=== PATIENT | male | born 1945 | race Caucasian/White ===

== ENCOUNTER 2017-02-13 11:54 | Day surgery (SDC) | payer MEDICARE, BC ==
[~2017-02-13 11:54] MED LIST: Lactated Ringers 1,000 ML IV SCH
[2017-02-13] MEDS ORDERED: fentaNYL 100 MCG/2 ML SDV ONE (12:17)
[2017-02-13] MEDS ORDERED: Lidocaine 2% 5 ML SDV ONE (12:17)
[2017-02-13] MEDS ORDERED: Propofol 200 MG/20 ML SDV ONE (12:17)
[2017-02-13] MEDS ORDERED: Midazolam 1 MG/ML 2 ML SDV ONE (12:37)
--- NOTE | 2017-02-13 13:51 | PCM.OPNOTE ---
- General Post-Op/Procedure Note Date of Surgery/Procedure: 02/13/17 Operative Procedure(s): Esophagogastroduodenoscopy with biopsies of duodenum and gastric mass Pre Op Diagnosis: Unexplained weight loss. Early satiety. Left upper quadrant mass. Post-Op Diagnosis: Gastric neoplasm Anesthesia Technique: MAC (ASA III) Primary Surgeon: Gustavo Cohen Condition: Good Free Text/Narrative:: Dictation [id number] CPT CODE 39006
[2017-02-13] MEDS ORDERED: Lactated Ringers 1,000 ML IV SCH (14:00)
--- NOTE | 2017-02-13 14:13 | PCM.PREANE ---
Preanesthetic Assessment - Anesthesia/Transfusion/Family Hx Anesthesia History: Prior Anesthesia Without Reaction Family History of Anesthesia Reaction: No Transfusion History: No Prior Transfusion(s) Intubation History: Unknown - Review of Systems General: No Symptoms Pulmonary: No Symptoms Cardiovascular: No Symptoms Gastrointestinal: Abdominal Pain Neurological: No Symptoms Other: Reports: None - Physical Assessment O2 Sat by Pulse Oximetry: 93 Respiratory Rate: 21 Vital Signs: Last Vital Signs Temp 36.7 C 02/13/17 12:45 Pulse 97 02/13/17 13:59 Resp 21 H 02/13/17 13:59 BP 80/54 L 02/13/17 13:59 Pulse Ox 93 L 02/13/17 13:59 Height: 1.7 m Weight: 58.06 kg ASA Class: 3 Mental Status: Alert & Oriented x3 Airway Class: Mallampati = 2 Dentition: Reports: Dentures (upper) Thyro-Mental Finger Breadths: 3 Mouth Opening Finger Breadths: 3 ROM/Head Extension: Full Lungs: Clear to Auscultation, Normal Respiratory Effort Cardiovascular: Regular Rate, Regular Rhythm - Allergies Allergies/Adverse Reactions: Allergies Allergy/AdvReac Type Severity Reaction Status Date / Time No Known Allergies Allergy Verified 04/09/14 09:27 - Blood Blood Available: No - Anesthesia Plan Pre-Op Medication Ordered: None - Acknowledgements Anesthesia Type Planned: MAC Pt an Appropriate Candidate for the Planned Anesthesia: Yes Alternatives and Risks of Anesthesia Discussed w Pt/Guardian: Yes Pt/Guardian Understands and Agrees with Anesthesia Plan: Yes PreAnesthesia Questionnaire HEENT History: Reports: Other (See Below) Other HEENT History: wears glasses, has upper denture Gastrointestinal History: Reports: Other (See Below) Other Gastrointestinal History: presently has c/o abd discomfort and weight loss , early satiety. Large massin the stomach palpable on physical exam and visible on abdominal CT. Musculoskeletal History: Reports: Fracture Other Musculoskeletal History: fx foot and shoulder - Past Surgical History Head Surgeries/Procedures: Reports: None Musculoskeletal Surgical History: Reports: Shoulder Surgery Other Musculoskeletal Surgeries/Procedures:: surgical tx for fx rt foot and fx rt shoulder with shoulder replacemant - SUBSTANCE USE Smoking Status *Q: Never Smoker Second Hand Smoke Exposure: No Days Per Week of Alcohol Use: 0 Recreational Drug Use History: No - HOME MEDS Home Medications: Home Meds Lactose-Reduced Food [Ensure Plus] 1 dose PO ASDIRECTED 02/12/17 [History] - CURRENT (IN HOUSE) MEDS Current Meds: Current Medications Lactated Ringer's (Ringers, Lactated) 1,000 mls @ 125 mls/hr IV ASDIRECTED JULY Lactated Ringer's (Ringers, Lactated) 1,000 mls @ 125 mls/hr IV ASDIRECTED JULY Discontinued Medications Fentanyl (Sublimaze) Confirm Administered Dose 100 mcg .ROUTE .STK-MED ONE Stop: 02/13/17 12:18 Lidocaine (Xylocaine-Mpf 2%) Confirm Administered Dose 5 ml .ROUTE .STK-MED ONE Stop: 02/13/17 12:18 Midazolam HCl (Versed 1 Mg/Ml) Confirm Administered Dose 2 mg .ROUTE .STK-MED ONE Stop: 02/13/17 12:38 Propofol (Diprivan 20 Ml) Confirm Administered Dose 400 mg .ROUTE .STK-MED ONE Stop: 02/13/17 12:18
[2017-02-13 14:26] VITALS: BP 80/57
--- NOTE | 2017-02-13 19:42 | OR ---
SURGEON: Gustavo Cohen M.D. DATE OF PROCEDURE: 02/13/2017 OPERATION PERFORMED: Video esophagogastroduodenoscopy with biopsies of gastric mass. PREOPERATIVE DIAGNOSES: Abdominal pain, unexplained weight loss, abnormal CT scan, palpable abdominal mass. POSTOPERATIVE DIAGNOSIS: Aggressive gastric neoplasm. DESCRIPTION OF PROCEDURE: The patient was taken to the endoscopy room and positioned on the endoscopy table in the supine position. Time-out was called for appropriate identification of the patient and procedure. Monitored anesthesia care was provided. A bite block was placed between the patient's teeth. The gastroscope was inserted through the bite block into the oropharynx and advanced without difficulty through the esophagus into the stomach where one immediately sees a very large aggressive appearing neoplasm that begins perhaps 3 cm below the GE junction. I was able to get through the tumor mass into the duodenum and photos were taken documenting position of the scope. The duodenum does show acute inflammatory changes and duodenal polyps. Separate biopsies of the duodenum were obtained. The gastroscope was then withdrawn into the stomach visualizing the pylorus. This neoplasm does extend almost to the level of the pylorus and involves the entire circumference of the bowel. The tumor mass itself is very large and friable. It involves at least 80% of the length of the stomach and is a circumferential lesion. The GE junction is well defined and does not show any acute inflammatory changes. The esophagus still demonstrates fair contractility. No esophageal lesions were identified. The vocal cords were visualized as the scope was withdrawn and noted to move symmetrically. The patient tolerated the procedure well and was taken to the recovery room in satisfactory condition. BISI / CARLITOS /[id number]
== END 2017-02-13 14:15 | disposition home or self-care (01) ==
LOC: MW.SDS 11:54
PROVIDERS: ATTEND Surgery
DX: C83.33 Diffuse large B-cell lymphoma, intra-abdominal lymph nodes (principal); K31.7 Polyp of stomach and duodenum; R18.8 Other ascites
CPT/HCPCS: 43239; 88305; 88312; J2250; J3010; J2704

== ENCOUNTER 2017-02-23 17:55 | Inpatient (IN) | payer MEDICARE, BC ==
[2017-02-23] MEDS ORDERED: Sodium Chloride 0.9% 1,000 ML IV ONE (18:12)
[2017-02-23] MEDS ORDERED: Sodium Chloride 0.9% 10 ML Syringe FLUSH PRN (18:13)
[2017-02-23] MEDS ORDERED: Sodium Chloride 0.9% 2.5 ML Syringe FLUSH PRN (18:13)
--- NOTE | 2017-02-23 18:17 | EDM.PDOC ---
ED HPI GENERAL MEDICAL PROBLEM - General Chief Complaint: General Stated Complaint: WEAK Time Seen by Provider: 02/23/17 18:13 Source of Information: Reports: Patient, Family, Old Records History Limitations: Reports: No Limitations - History of Present Illness INITIAL COMMENTS - FREE TEXT/NARRATIVE: HISTORY AND PHYSICAL: []71-year-old male presenting with weakness History of Present Illness: []Patient has been sick since . Patient was diagnosed with stomach cancer / lymphoma on February 13. He has been unable to eat solids, he has been drinking Ensure, small amounts at a time. Patient has had at least 15 pound weight loss this month. Review of Systems: As per history of present illness and below otherwise all systems reviewed and negative. Past medical history: As per history of present illness and as reviewed below otherwise noncontributory. Surgical history: As per history of present illness and as reviewed below otherwise noncontributory. Social history: No reported history of drug or alcohol abuse. Family history: As per history of present illness and as reviewed below otherwise noncontributory. Physical exam: Alert and oriented gentleman whose is at bedside. Speaking very softly and full sentences without shortness of breath. Patient looks thin. HEENT: Atraumatic, normocehpalic, pupils reactive, negative for conjunctival pallor or scleral icterus, mucous membranes moist, throat clear, neck supple, nontender, trachea midline. Lungs: Clear to auscultation, breath sounds equal bilaterally, chest non tender. Heart: S1S2, regular, negative for clicks, rubs, or JVD. Abdomen: Soft, nondistended, nontender. Negative for masses or hepatossplenmegaly. Negative for costovertebral tenderness. Pelvis: Stable nontender. Genitourinary: Deferred. Rectal: Deferred Extremities: Atraumatic, negative for cords or calf pain. Neurovascular unremarkable. Neuro: Awake, alert, oriented. Cranial nerves II through XII unremarkable. Cerebellum unremarkable. Motor and sensory unremarkable throughout. Exam nonfocal. Discussed with Dr. Kasper patients weakness and his hypotension/tachycardia. He is in agreement to refer to observation. Discussed with the patient and his observation to increase his fluid intake. They are agreeable to this recommended course of action. Diagnostics: [cbc, cmp,ekg] Therapeutics: [] Impression: [Hypotension Sinus tachycardia Weakness] Plan: [Refer to observation Definitive disposition and diagnosis as appropriate pending reevaluation and review of above. Onset: Gradual Duration: Week(s): Location: Reports: Generalized - Related Data Allergies Allergy/AdvReac Type Severity Reaction Status Date / Time No Known Allergies Allergy Verified 02/23/17 18:05 Home Meds: Home Meds Lactose-Reduced Food [Ensure Plus] 1 dose PO ASDIRECTED 02/12/17 [History] Ampicillin Trihydrate 500 mg PO QID 02/23/17 [History] Esomeprazole [NexIUM] 40 mg PO DAILY 02/23/17 [History] Sucralfate [Sucralfate] 1 tab PO QID 02/23/17 [History] metroNIDAZOLE [Flagyl] 500 mg PO BID 02/23/17 [History] Past Medical History HEENT History: Reports: Other (See Below) Other HEENT History: wears glasses, has upper denture Gastrointestinal History: Reports: Other (See Below) Other Gastrointestinal History: has weight loss, early satiety. Large massin the stomach palpable on physical exam and visible on abdominal CT. Musculoskeletal History: Reports: Fracture Other Musculoskeletal History: fx foot and shoulder - Past Surgical History Head Surgeries/Procedures: Reports: None Musculoskeletal Surgical History: Reports: Shoulder Surgery Other Musculoskeletal Surgeries/Procedures:: surgical tx for fx rt foot and fx rt shoulder with shoulder replacemant Social & Family History - Family History Family Medical History: Noncontributory - Tobacco Use Smoking Status *Q: Never Smoker Second Hand Smoke Exposure: No - Caffeine Use Caffeine Use: Reports: Coffee - Alcohol Use Days Per Week of Alcohol Use: 0 - Recreational Drug Use Recreational Drug Use: No ED ROS GENERAL - Review of Systems Review Of Systems: ROS reveals no pertinent complaints other than HPI. ED EXAM, GENERAL - Physical Exam Exam: See Below (see dictation) Course - Vital Signs Last Recorded V/S: Last Vital Signs Temp 36.6 C 02/23/17 18:00 Pulse 112 H 02/23/17 19:05 Resp 20 02/23/17 19:05 BP 95/63 02/23/17 19:05 Pulse Ox 94 L 02/23/17 19:05 - Orders/Labs/Meds Orders: Active Orders 24 hr Category Date Time Status Patient Status [ADT] Stat ADT 02/23/17 19:19 Ordered EKG Documentation Completion [RC] STAT Care 02/23/17 18:12 Active Sodium Chloride 0.9% [Saline Flush] Med 02/23/17 18:13 Active 10 ml FLUSH ASDIRECTED PRN Sodium Chloride 0.9% [Saline Flush] Med 02/23/17 18:13 Active 2.5 ml FLUSH ASDIRECTED PRN Saline Lock Insert [OM.PC] Stat Oth 02/23/17 18:12 Ordered Medication Orders Sodium Chloride (Saline Flush) 10 ml FLUSH ASDIRECTED PRN PRN Reason: Keep Vein Open Last Admin: 02/23/17 18:15 Dose: 10 ml Sodium Chloride (Saline Flush) 2.5 ml FLUSH ASDIRECTED PRN PRN Reason: Keep Vein Open Last Admin: 02/23/17 18:16 Dose: 2.5 ml Labs: Laboratory Tests 02/23/17 02/23/17 Range/Units 18:15 18:15 WBC 7.88 (4.0-11.0) K/uL RBC 5.17 (4.50-5.90) M/uL Hgb 14.0 (13.0-17.0) g/dL Hct 41.3 (38.0-50.0) % MCV 79.9 L (80.0-98.0) fL MCH 27.1 (27.0-32.0) pg MCHC 33.9 (31.0-37.0) g/dL RDW Std Deviation 44.7 (28.0-62.0) fl RDW Coeff of Benja 16 H (11.0-15.0) % Plt Count 358 (150-400) K/uL MPV 9.60 (7.40-12.00) fL Add Manual Diff YES Neutrophils % (Manual) 72 (48.0-80.0) % Band Neutrophils % 4 % Lymphocytes % (Manual) 19 (16.0-40.0) % Monocytes % (Manual) 5 (0.0-15.0) % Nucleated RBC % 0.0 /100WBC Absolute Seg Neuts 5.7 (1.4-5.7) Band Neutrophils # 0.3 Lymphocytes # (Manual) 1.5 (0.6-2.4) Monocytes # (Manual) 0.4 (0.0-0.8) Nucleated RBCs # 0 K/uL Sodium 129 L (136-146) mmol/L Potassium 4.7 (3.5-5.1) mmol/L Chloride 99 (98-110) mmol/L Carbon Dioxide 16 L (21-31) mmol/L BUN 26 H (6.0-23.0) mg/dL Creatinine 0.8 (0.6-1.5) mg/dL Est Cr Clr Drug Dosing 69.51 mL/min Estimated GFR (MDRD) > 60.0 ml/min Glucose 117 H (60-110) mg/dL Calcium 8.2 L (8.8-10.8) mg/dL Total Bilirubin 0.4 (0.1-1.5) mg/dL AST 26 (5-40) IU/L ALT 15 (8-54) IU/L Alkaline Phosphatase 201 H (40-150) Total Protein 4.9 L (6.0-8.0) g/dL Albumin 2.6 L (3.4-4.8) g/dL Globulin 2.3 (2.0-3.5) g/dL Albumin/Globulin Ratio 1.1 L (1.3-2.8) Meds: Medications Generic Name Dose Route Start Last Admin Trade Name Freq PRN Reason Stop Dose Admin Sodium Chloride 10 ml 02/23/17 18:13 02/23/17 18:15 Saline Flush FLUSH 10 ml ASDIRECTED PRN Administration Keep Vein Open Sodium Chloride 2.5 ml 02/23/17 18:13 02/23/17 18:16 Saline Flush FLUSH 2.5 ml ASDIRECTED PRN Administration Keep Vein Open Discontinued Medications Generic Name Dose Route Start Last Admin Trade Name Freq PRN Reason Stop Dose Admin Famotidine 20 mg 02/23/17 18:37 02/23/17 18:44 Pepcid IVPUSH 02/23/17 18:38 20 mg ONETIME ONE Administration Sodium Chloride 1,000 mls @ 999 mls/hr 02/23/17 18:12 02/23/17 18:21 Normal Saline IV 02/23/17 19:12 999 mls/hr STAT ONE Administration Departure - Departure Time of Disposition: 19:22 Disposition: Refer to Observation Condition: Fair Clinical Impression: Sinus tachycardia, Weakness generalized Hypotension Qualifiers: Hypotension type: other hypotension type Qualified Code(s): I95.89 - Other hypotension - Discharge Information Referrals: PCP,None [Primary Care Provider] - Forms: ED Department Discharge - My Orders Last 24 Hours: My Active Orders 02/23/17 18:12 EKG Documentation Completion [RC] STAT Saline Lock Insert [OM.PC] Stat 02/23/17 18:13 Sodium Chloride 0.9% [Saline Flush] 10 ml FLUSH ASDIRECTED PRN Sodium Chloride 0.9% [Saline Flush] 2.5 ml FLUSH ASDIRECTED PRN 02/23/17 19:19 Patient Status [ADT] Stat - Assessment/Plan Last 24 Hours: My Active Orders 02/23/17 18:12 EKG Documentation Completion [RC] STAT Saline Lock Insert [OM.PC] Stat 02/23/17 18:13 Sodium Chloride 0.9% [Saline Flush] 10 ml FLUSH ASDIRECTED PRN Sodium Chloride 0.9% [Saline Flush] 2.5 ml FLUSH ASDIRECTED PRN 02/23/17 19:19 Patient Status [ADT] Stat
[2017-02-23] MEDS ORDERED: Famotidine 20 MG/2 ML SDV IVPUSH ONE (18:37)
[2017-02-23 18:50] LABS: CHLORIDE,CL 99 mmol/L (98-110); SODIUM,NA 129 mmol/L (136-146)
--- NOTE | 2017-02-23 21:23 | PCM.HP ---
H&P History of Present Illness - General Date of Service: 02/23/17 Admit Problem/Dx: Weakness Source of Information: Patient History Limitations: Reports: No Limitations - History of Present Illness Initial Comments - Free Text/Narative: 71 yo male presenting to ED with chief complaint of weakness for 2 months worse over the last 1week with recently diagnosed Lymphoma of the stomach. Patient states he has been feeling sick since so he saw his PCP Dr. Ny who preformed a CT of the abd/pelvis revealing: CT abd/pelvis 02/09/17 1. Regular gastric thickening concerning for a malignant neoplastic process. 2. Moderate abdominal ascites. 3. Mesenteric lymphadenopathy. 4. Scattered bowel wall thickening within the duodenum and possible ileum, not well characterized without contrast. 5. Cholelithiasis He was then referred to Dr. Cohen on 02/11/17 who preformed an EGD which revealed a "very large aggressive appearing neoplasm that begins approx. 3 cm below GE Junction". He subsequently was diagnosed with lympoma of the stomach and referred to [facility] oncologist, which they saw last week. He is scheduled for a PET scan to be done in [place] on 02/26. States that recently he has been unable to take in solid foods as they get to his stomach but don't go down and "just come up" so has been only drinking his intake primarily with Ensure. Over the past week he has become increasingly weak and this is what prompted the visit to the ED. He has lost approx. 15-20 lbs in the last month. He has always been an nonsmoker and only social drinker. Denies any cardiopulmonary disease and take no regular medication. He has no allergies and currently denies any pain. He does get sob with walking. In ED, CBC was unremarkable, CMP revealed hyponatremia, elevated alk phos 201, and low total protein and albumin. Patient wishes to be DNR/DNI. Patient was admitted for weakness. - Related Data Allergies/Adverse Reactions: Allergies Allergy/AdvReac Type Severity Reaction Status Date / Time No Known Allergies Allergy Verified 02/23/17 18:05 Home Medications: Home Meds Lactose-Reduced Food [Ensure Plus] 1 dose PO ASDIRECTED 02/12/17 [History] Ampicillin Trihydrate 500 mg PO QID 02/23/17 [History] Esomeprazole [NexIUM] 40 mg PO DAILY 02/23/17 [History] Sucralfate [Sucralfate] 1 tab PO QID 02/23/17 [History] metroNIDAZOLE [Flagyl] 500 mg PO BID 02/23/17 [History] Past Medical History HEENT History: Reports: Other (See Below) Other HEENT History: wears glasses, has upper denture Gastrointestinal History: Reports: Other (See Below) Other Gastrointestinal History: has weight loss, early satiety. Large massin the stomach palpable on physical exam and visible on abdominal CT. Musculoskeletal History: Reports: Fracture Other Musculoskeletal History: fx foot and shoulder - Past Surgical History Head Surgeries/Procedures: Reports: None Musculoskeletal Surgical History: Reports: Shoulder Surgery Other Musculoskeletal Surgeries/Procedures:: surgical tx for fx rt foot and fx rt shoulder with shoulder replacemant Social & Family History - Family History Family Medical History: Noncontributory - Tobacco Use Smoking Status *Q: Never Smoker Second Hand Smoke Exposure: No - Caffeine Use Caffeine Use: Reports: Coffee - Alcohol Use Days Per Week of Alcohol Use: 0 - Recreational Drug Use Recreational Drug Use: No H&P Review of Systems - Review of Systems: Review Of Systems: See Below General: Reports: Chills, Malaise, Weakness, Fatigue, Weight Loss. Denies: Fever, Diaphoresis HEENT: Reports: Dysphasia. Denies: Headaches, Sinus Congestion, Sore Throat Pulmonary: Reports: Shortness of Breath. Denies: Wheezing, Pleuritic Chest Pain , Cough, Sputum Cardiovascular: Denies: Chest Pain, Palpitations, Edema Gastrointestinal: Denies: Abdominal Pain, Nausea, Vomiting Genitourinary: Denies: Dysuria, Hematuria Musculoskeletal: Denies: Neck Pain, Leg Pain Skin: Denies: Cyanosis Psychiatric: Denies: Confusion Neurological: Denies: Confusion, Dizziness, Headache Hematologic/Lymphatic: Denies: Anemia Exam - Exam Exam: See Below - Vital Signs Vital Signs: Last Vital Signs Temp 97.8 F 02/23/17 18:00 Pulse 112 H 02/23/17 20:03 Resp 20 02/23/17 20:03 BP 94/63 02/23/17 20:03 Pulse Ox 94 L 02/23/17 20:03 Weight: 55.5 kg - Exam Quality Assessment: DVT Prophylaxis General: Alert, Oriented, Cooperative HEENT: Conjunctiva Clear, EACs Clear, EOMI, Hearing Intact, Mucosa Moist & [place] , Nares Patent, Normal Nasal Septum, Posterior Pharynx Clear, PERRLA Neck: Supple, Trachea Midline, 2 Lungs: Clear to Auscultation, Normal Respiratory Effort Cardiovascular: Regular Rate, Regular Rhythm, Normal S1, Normal S2 GI/Abdominal Exam: Normal Bowel Sounds, Non-Tender, Distended, Mass (epigastric) . No: Rebound, Tender Back Exam: Normal Inspection Extremities: Normal Inspection, Non-Tender, No Pedal Edema, Normal Capillary Refill Peripheral Pulses: 2+: Radial (L), Radial (R), Posterior Tibial (L), Posterior Tibial (R), Dorsalis Pedis (L), Dorsalis Pedis (R) Skin: Warm, Dry, Intact Neurological: Cranial Nerves Intact Neuro Extensive - Mental Status: Alert, Oriented x3, Normal Mood/Affect, Normal Cognition Neuro Extensive - Motor, Sensory, Reflexes: CN II-XII Intact Psychiatric: Alert, Normal Affect, Normal Mood - Patient Data Result Diagrams: 02/23/17 18:15 02/23/17 18:15 *Q Meaningful Use (ADM) - VTE *Q VTE Criteria *Q: - Stroke *Q Stroke Criteria *Q: - AMI *Q AMI Criteria *Q: - Problem List (1) Dehydration with hyponatremia SNOMED Code(s): 26821464 ICD Code: E87.1 - HYPO-OSMOLALITY AND HYPONATREMIA Status: Acute Priority : High Current Visit: Yes (2) Nutrition deficiency due to insufficient food SNOMED Code(s): 926982592 ICD Code: E63.9 - NUTRITIONAL DEFICIENCY, UNSPECIFIED; T73.0XXA - STARVATION , INITIAL ENCOUNTER Status: Chronic Priority: High Current Visit: Yes (3) Lymphoma of body of stomach SNOMED Code(s): 782019462 ICD Code: C85.99 - NON-HODGKIN LYMPHOMA, UNSP, EXTRANODAL AND SOLID ORGAN SITES Status: Chronic Priority: High Current Visit: Yes (4) Weakness generalized SNOMED Code(s): 71128675 ICD Code: R53.1 - WEAKNESS Status: Chronic Priority: High Current Visit : Yes Problem List Initiated/Reviewed/Updated: Yes Orders Last 24hrs: Active Orders 24 hr Category Date Time Status Admission Status [Patient Status] [ADT] Stat ADT 02/23/17 19:56 Active Medication Orders Sodium Chloride (Saline Flush) 10 ml FLUSH ASDIRECTED PRN PRN Reason: Keep Vein Open Last Admin: 02/23/17 18:15 Dose: 10 ml Sodium Chloride (Saline Flush) 2.5 ml FLUSH ASDIRECTED PRN PRN Reason: Keep Vein Open Last Admin: 02/23/17 18:16 Dose: 2.5 ml Assessment/Plan Comment:: 71 yo male admitted 02/23/17 for generalized weakness and hyponatremia with pmh of recently diagnosed lymphoma of the stomach. Generalized weakness: Secondary to decreased nutritional intake from inability to hold down foods most likely due to obstruction from lymphoma of stomach. He is also volume depleted. Given 2 L NS in ED will continue IVF resus with NS 125ml/hr. Consult records manager and encourage high calorie replacement. PT consult for strengthening. Hyponatremia: Most likely vol. contraction. IVF resus and monitor. Lymphoma: Scheduled for PET on 02/26 but currently very weak. Will consult Dr. Susan Severino oncologist tomorrow. Also will let Dr. Cohen and Dr. Ny know patient is in house. May need to discuss hospice at some point with patient. VTE: SCD, Heparin Dispo: 2-3 days pending.
[2017-02-23] MEDS ORDERED: oxyCODONE 5 MG Tab PO PRN (21:33)
[2017-02-23] MEDS ORDERED: Morphine 10 MG/ML Syringe IVPUSH PRN (21:33)
[2017-02-23] MEDS ORDERED: Ondansetron 4 MG Tab.DIS PO PRN (21:33)
[2017-02-23] MEDS ORDERED: Morphine 2 MG/ML Syringe IVPUSH PRN (21:51)
[2017-02-23] MEDS: Sodium Chloride 0.9% 1,000 ML IV SCH (22:09)
[2017-02-23] MEDS: Heparin Sodium 5,000 Units/ML Vial SUBCUT SCH (22:20)
[2017-02-24] MEDS: Sodium Chloride 0.9% 1,000 ML IV SCH ×2 (05:02→16:29)
[2017-02-24 05:39] LABS: CHLORIDE,CL 103 mmol/L (98-110); SODIUM,NA 132 mmol/L (136-146)
[2017-02-24] MEDS: Heparin Sodium 5,000 Units/ML Vial SUBCUT SCH ×3 (05:48→21:11)
[2017-02-24] MEDS ORDERED: Ondansetron 4 MG/2 ML SDV IVPUSH PRN (08:40)
[2017-02-24] MEDS: Famotidine 20 MG Tab PO SCH ×2 (08:40→21:10)
[2017-02-24] MEDS ORDERED: MVI, Adult with Vitamin K 10 ML, Thiamine 100 MG, Folic Acid 1 MG in Sodium Chloride 0.... IV ONE ×4 (10:54)
--- NOTE | 2017-02-24 11:04 | PCM.PN ---
- General Info Date of Service: 02/24/17 Admission Dx/Problem (Free Text): Weakness Subjective Update: Patient still complains of inability to tolerate any PO intake. He is unsure what anti-emetics he was taking at home. He is able to tolerate water but nothing else. He has PET scan scheduled in 2 days but is unsure whether or not he will able to make the appointment - Review of Systems General: Reports: Weakness, Fatigue, Appetite (decreased) HEENT: Reports: No Symptoms Pulmonary: Reports: No Symptoms Cardiovascular: Reports: No Symptoms Gastrointestinal: Reports: Decreased Appetite, Nausea, Vomiting Genitourinary: Reports: No Symptoms Musculoskeletal: Reports: No Symptoms Skin: Reports: No Symptoms Neurological: Reports: No Symptoms Psychiatric: Reports: Depression - Patient Data Vitals - Most Recent: Last Vital Signs Temp 36.8 C 02/24/17 08:00 Pulse 112 H 02/24/17 08:00 Resp 24 H 02/24/17 08:00 BP 98/66 02/24/17 08:00 Pulse Ox 93 L 02/24/17 08:00 Weight - Most Recent: 55.5 kg I&O - Last 24 Hours: Intake & Output 02/23/17 02/24/17 02/24/17 22:59 06:59 14:59 Intake Total 1233 Balance 1233 Lab Results Last 24 Hours: Laboratory Results - last 24 hr 02/24/17 02/24/17 Range/Units 04:59 04:59 WBC 5.64 (4.0-11.0) K/uL RBC 4.45 L (4.50-5.90) M/uL Hgb 11.8 L (13.0-17.0) g/dL Hct 35.5 L (38.0-50.0) % MCV 79.8 L (80.0-98.0) fL MCH 26.5 L (27.0-32.0) pg MCHC 33.2 (31.0-37.0) g/dL RDW Std Deviation 45.0 (28.0-62.0) fl RDW Coeff of Benja 16 H (11.0-15.0) % Plt Count 324 (150-400) K/uL MPV 9.50 (7.40-12.00) fL Neut % (Auto) 76.2 (48.0-80.0) % Lymph % (Auto) 13.5 L (16.0-40.0) % [place] % (Auto) 9.9 (0.0-15.0) % Eos % (Auto) 0.2 (0.0-7.0) % Baso % (Auto) 0.2 (0.0-1.5) % Neut # (Auto) 4.3 (1.4-5.7) K/uL Lymph # (Auto) 0.8 (0.6-2.4) K/uL [place] # (Auto) 0.6 (0.0-0.8) K/uL Eos # (Auto) 0.0 (0.0-0.7) K/uL Baso # (Auto) 0.0 (0.0-0.1) K/uL Nucleated RBC % 0.0 /100WBC Nucleated RBCs # 0 K/uL Sodium 132 L (136-146) mmol/L Potassium 4.5 (3.5-5.1) mmol/L Chloride 103 (98-110) mmol/L Carbon Dioxide 17 L (21-31) mmol/L BUN 26 H (6.0-23.0) mg/dL Creatinine 0.7 (0.6-1.5) mg/dL Est Cr Clr Drug Dosing 77.08 mL/min Estimated GFR (MDRD) > 60.0 ml/min Glucose 96 (60-110) mg/dL Calcium 7.8 L (8.8-10.8) mg/dL Phosphorus 3.5 (2.4-4.7) mg/dL Magnesium 1.4 L (1.5-2.3) mEq/L Total Bilirubin 0.4 (0.1-1.5) mg/dL AST 23 (5-40) IU/L ALT 10 (8-54) IU/L Alkaline Phosphatase 178 H (40-150) Total Protein 4.1 L (6.0-8.0) g/dL Albumin 2.4 L (3.4-4.8) g/dL Globulin 1.7 L (2.0-3.5) g/dL Albumin/Globulin Ratio 1.4 (1.3-2.8) Med Orders - Current: Current Medications Famotidine (Pepcid) 20 mg PO BID JULY Last Admin: 02/24/17 08:40 Dose: 20 mg Heparin Sodium (Porcine) (Heparin Sodium) 5,000 units SUBCUT Q8H [facility] Last Admin: 02/24/17 05:48 Dose: 5,000 units Sodium Chloride (Normal Saline) 1,000 mls @ 125 mls/hr IV ASDIRECTED [facility] Last Admin: 02/24/17 05:02 Dose: 125 mls/hr Multivitamins/Minerals 10 ml/Thiamine HCl 100 mg/ Folic Acid 1 mg/ Sodium Chloride 1,011.2 mls @ 200 mls/hr IV ONETIME ONE Stop: 02/24/17 15:57 Morphine Sulfate (Morphine) 2 mg IVPUSH Q2H PRN PRN Reason: Pain (severe 7-10) Ondansetron HCl (Zofran) 4 mg IVPUSH Q6H [facility] Oxycodone HCl (Oxycodone) 5 mg PO Q4H PRN PRN Reason: Pain (moderate 4-6) Promethazine HCl (Phenergan) 25 mg IM Q6H PRN PRN Reason: nausea & vomiting Sodium Chloride (Saline Flush) 10 ml FLUSH ASDIRECTED PRN PRN Reason: Keep Vein Open Last Admin: 02/23/17 18:15 Dose: 10 ml Sodium Chloride (Saline Flush) 2.5 ml FLUSH ASDIRECTED PRN PRN Reason: Keep Vein Open Last Admin: 02/23/17 18:16 Dose: 2.5 ml Discontinued Medications Famotidine (Pepcid) 20 mg IVPUSH ONETIME ONE Stop: 02/23/17 18:38 Last Admin: 02/23/17 18:44 Dose: 20 mg Sodium Chloride (Normal Saline) 1,000 mls @ 999 mls/hr IV STAT ONE Stop: 02/23/17 19:12 Last Admin: 02/23/17 18:21 Dose: 999 mls/hr Morphine Sulfate (Morphine) 2 mg IVPUSH Q2H PRN PRN Reason: Pain (severe 7-10) Stop: 02/24/17 21:36 Ondansetron HCl (Zofran Odt) 4 mg PO Q4H PRN PRN Reason: nausea, able to take PO Last Admin: 02/24/17 07:34 Dose: 4 mg Ondansetron HCl (Zofran) 4 mg IVPUSH Q4H PRN PRN Reason: Nausea/Vomiting - Exam General: Alert, Oriented, No Acute Distress HEENT: Pupils Equal, Pupils Reactive Neck: Supple, No JVD, Lymphadenopathy Lungs: Clear to Auscultation, Normal Respiratory Effort Cardiovascular: Regular Rate, Regular Rhythm GI/Abdominal Exam: Normal Bowel Sounds, Soft, Non-Tender, No Distention Extremities: Normal Inspection, Slow Capillary Refill Peripheral Pulses: 2+: Radial (L), Radial (R) Skin: Intact Neurological: No New Focal Deficit Psy/Mental Status: Alert, Normal Affect, Normal Mood - Problem List Review Problem List Initiated/Reviewed/Updated: Yes - My Orders Last 24 Hours: My Active Orders 02/24/17 10:54 MVI, Adult with Vitamin K [Infuvite Adult] 10 ml Thiamine [Vitamin B-1] 100 mg Folic Acid 1 mg Sodium Chloride 0.9% [Normal Saline] 1,000 ml IV ONETIME 02/24/17 11:00 Ondansetron [Zofran] 4 mg IVPUSH Q6H 02/24/17 12:00 Promethazine [Phenergan] 25 mg IM Q6H PRN - Plan Plan:: 71 yo male admitted 02/23/17 for generalized weakness and hyponatremia with pmh of recently diagnosed lymphoma of the stomach. #Nausea & Vomiting -likely secondary to GI Cancer -patient unable to tolerate any po intake except water plan: -start Zofran 4 mg IV [id number] scheduled -start Phenergan 25 mg IM [id number] PRN -consult general surgery for any additional rec's #Generalized Weakness -secondary to decreased PO intake plan: -banana bag x1, IV NS at 125 ml hour -consult PT for strengthening #GI Lymphoma -Patient sees Dr. Susan Severino oncologist -Scheduled for PET on 02/26/17 at [facility] plan: -consult Dr. Davis, oncology #Hyponatremia, improving -continue to monitor VTE: SCD, Heparin Dispo: 2-3 days pending.
[2017-02-24] MEDS: Ondansetron 4 MG/2 ML SDV IVPUSH SCH ×3 (11:13→22:31)
[2017-02-24] MEDS ORDERED: Promethazine 25 MG/ML SDV IM PRN (12:00)
--- NOTE | 2017-02-24 17:04 | PCM.SN ---
- Free Text/Narrative Note: Discussed current situation with patient, and Fidel Scooby earlier today. Patient has become very weak and debilitated in the past 10 days. He is not sure if he wants to undergo PET scan or consider further treatment. He knows his current situation is grave with a very poor prognosis. We did discuss the option of going on hospice with comfort cares only. He was leaning towards this option at that time.
[2017-02-25] MEDS: Sodium Chloride 0.9% 1,000 ML IV SCH ×2 (00:22→10:33)
[2017-02-25] MEDS ORDERED: Magnesium Sulfate/Water 4 GM in Premix Bag 1 BAG IV ONE (00:50)
[2017-02-25] MEDS: Ondansetron 4 MG/2 ML SDV IVPUSH SCH ×2 (05:05→10:33)
[2017-02-25] MEDS: Heparin Sodium 5,000 Units/ML Vial SUBCUT SCH (05:09)
[2017-02-25 05:57] LABS: CHLORIDE,CL 105 mmol/L (98-110); SODIUM,NA 131 mmol/L (136-146)
[2017-02-25 07:58] VITALS: BP 102/70
[2017-02-25] MEDS: Famotidine 20 MG Tab PO SCH (08:44)
--- NOTE | 2017-02-25 11:51 | PCM.DCSUM1 ---
Discharge Summary - Hospital Course Free Text/Narrative:: 71 yo male with recently diagnosed lymphoma of the stomach admitted 02/23/17 for nausea, vomiting and weakness. Patient was treated with IVF, Zofran and Phenergan. Patent was referred to Dr. Davis Oncology who ordered PET scan to evaluate extent of cancer. Pet scan was scheduled for 02/26/17 at [facility]. Patient was visited by Dr. Cohen who is the physican who discovered patients cancer. They discussed various options available. Patient ultimately decided to pursue hospice and decided to not go forward with PET scan for now. He visited with hospice and confirmed his decision. He awknowledges understanding of the risks associated with his decision. He will de discharged home today under hospice. #Nausea & Vomiting, likely secondary to GI Lymphoma -Zofran 4 mg PO [id number] scheduled - may substitute each dose with phenergan 25 mg -Phenergan 25 mg PO [id number] PRN for uncontrolled nausea/vomiting #Malnutrition, Generalized Weakness & Appetite Loss -encourage patient to drink at least 4-6 nsure servings daily if not tolerating solid food -start Remeron 15 mg daily at bedtime for day 1-7, then 30 mg daily at bedtime for day 8-14, then 45 mg daily at bedtime going forward #GI Lymphoma -Patient sees Dr. Susan Severino oncologist -Scheduled for PET on 02/26/17 at [facility] -patient currently states he wishes to no longer pursue further management and would like to go on hospice -start Protonix 40 mg PO BID -start Oxycodone 5 mg PO [id number] PRN for Pain - Discharge Data Discharge Date: 02/25/17 Discharge Disposition: DC/Tfer to Hospice - Home 50 Condition: Fair - Patient Summary/Data Consults: Consultations 02/23/17 21:33 Consult to Intranet Specialist [CONS] Routine PT Evaluation and Treatment [CONS] Routine 02/25/17 07:44 Consult to Hospice [CONS] Routine - Patient Instructions Diet: Usual Diet as Tolerated Diet, Other: ingest at least 4-6 servings of NSURE daily if not tolerating solid food Activity: As Tolerated - Discharge Plan Prescriptions/Med Rec: Mirtazapine [Remeron] 0 - 3 tab PO BEDTIME #90 tab.dis Ondansetron [Zofran ODT] 4 mg PO Q6H 30 Days #120 tab.dis oxyCODONE 5 mg PO Q6H PRN 30 Days #120 tablet PRN Reason: uncontrolled pain Pantoprazole Sodium [Protonix] 40 mg PO BID 30 Days #60 tablet. Promethazine [Phenergan] 25 mg PO Q6H PRN 30 Days #120 tablet PRN Reason: uncontrolled nausea/vomiting Home Medications: Home Meds Lactose-Reduced Food [Ensure Plus] 1 dose PO ASDIRECTED 02/12/17 [History] Ampicillin Trihydrate 500 mg PO QID 02/23/17 [History] Sucralfate 1 tab PO QID 02/23/17 [History] metroNIDAZOLE [Flagyl] 500 mg PO BID 02/23/17 [History] Mirtazapine [Remeron] 0 - 3 tab PO BEDTIME #90 tab.dis 02/25/17 [Rx] Ondansetron [Zofran ODT] 4 mg PO Q6H 30 Days #120 tab.dis 02/25/17 [Rx] Pantoprazole Sodium [Protonix] 40 mg PO BID 30 Days #60 tablet. 02/25/17 [Rx] Promethazine [Phenergan] 25 mg PO Q6H PRN 30 Days #120 tablet 02/25/17 [Rx] oxyCODONE 5 mg PO Q6H PRN 30 Days #120 tablet 02/25/17 [Rx] Referrals: PCP,None [Primary Care Provider] - - Review of Systems General: Reports: Weakness HEENT: Reports: No Symptoms Pulmonary: Reports: No Symptoms Cardiovascular: Reports: No Symptoms Gastrointestinal: Reports: Decreased Appetite, Nausea Genitourinary: Reports: No Symptoms Musculoskeletal: Reports: No Symptoms Skin: Reports: No Symptoms Neurological: Reports: No Symptoms Psychiatric: Reports: No Symptoms - Patient Data Vitals - Most Recent: Last Vital Signs Temp 36.7 C 02/25/17 07:57 Pulse 121 H 02/25/17 07:57 Resp 20 02/25/17 07:57 BP 102/70 02/25/17 07:57 Pulse Ox 94 L 02/25/17 07:57 Weight - Most Recent: 55.5 kg I&O - Last 24 hours: Intake & Output 02/24/17 02/25/17 02/25/17 22:59 06:59 14:59 Intake Total 800 1735 Output Total 250 Balance 800 1485 Lab Results - Last 24 hrs: Laboratory Results - last 24 hr 02/25/17 02/25/17 Range/Units 04:49 04:49 WBC 4.59 (4.0-11.0) K/uL RBC 4.52 (4.50-5.90) M/uL Hgb 12.1 L (13.0-17.0) g/dL Hct 36.6 L (38.0-50.0) % MCV 81.0 (80.0-98.0) fL MCH 26.8 L (27.0-32.0) pg MCHC 33.1 (31.0-37.0) g/dL RDW Std Deviation 45.7 (28.0-62.0) fl RDW Coeff of Benja 16 H (11.0-15.0) % Plt Count 334 (150-400) K/uL MPV 9.50 (7.40-12.00) fL Add Manual Diff YES Neutrophils % (Manual) 72 (48.0-80.0) % Band Neutrophils % 9 % Lymphocytes % (Manual) 15 L (16.0-40.0) % Monocytes % (Manual) 4 (0.0-15.0) % Nucleated RBC % 0.0 /100WBC Absolute Seg Neuts 3.3 (1.4-5.7) Band Neutrophils # 0.4 Lymphocytes # (Manual) 0.7 (0.6-2.4) Monocytes # (Manual) 0.2 (0.0-0.8) Nucleated RBCs # 0 K/uL Sodium 131 L (136-146) mmol/L Potassium 4.9 (3.5-5.1) mmol/L Chloride 105 (98-110) mmol/L Carbon Dioxide 15 L (21-31) mmol/L BUN 25 H (6.0-23.0) mg/dL Creatinine 0.7 (0.6-1.5) mg/dL Est Cr Clr Drug Dosing 77.08 mL/min Estimated GFR (MDRD) > 60.0 ml/min Glucose 84 (60-110) mg/dL Calcium 7.6 L (8.8-10.8) mg/dL Magnesium 2.4 H (1.5-2.3) mEq/L Total Bilirubin 0.4 (0.1-1.5) mg/dL AST 31 (5-40) IU/L ALT 13 (8-54) IU/L Alkaline Phosphatase 240 H (40-150) Total Protein 4.0 L (6.0-8.0) g/dL Albumin 2.3 L (3.4-4.8) g/dL Globulin 1.7 L (2.0-3.5) g/dL Albumin/Globulin Ratio 1.4 (1.3-2.8) Med Orders - Current: Current Medications Famotidine (Pepcid) 20 mg PO BID [facility] Last Admin: 02/25/17 08:44 Dose: Not Given Heparin Sodium (Porcine) (Heparin Sodium) 5,000 units SUBCUT Q8H [facility] Last Admin: 02/25/17 05:09 Dose: 5,000 units Sodium Chloride (Normal Saline) 1,000 mls @ 125 mls/hr IV ASDIRECTED [facility] Last Admin: 02/25/17 10:33 Dose: 125 mls/hr Morphine Sulfate (Morphine) 2 mg IVPUSH Q2H PRN PRN Reason: Pain (severe 7-10) Ondansetron HCl (Zofran) 4 mg IVPUSH Q6H [facility] Last Admin: 02/25/17 10:33 Dose: 4 mg Oxycodone HCl (Oxycodone) 5 mg PO Q4H PRN PRN Reason: Pain (moderate 4-6) Promethazine HCl (Phenergan) 25 mg IM Q6H PRN PRN Reason: nausea & vomiting Last Admin: 02/25/17 09:44 Dose: 25 mg Sodium Chloride (Saline Flush) 10 ml FLUSH ASDIRECTED PRN PRN Reason: Keep Vein Open Last Admin: 02/23/17 18:15 Dose: 10 ml Sodium Chloride (Saline Flush) 2.5 ml FLUSH ASDIRECTED PRN PRN Reason: Keep Vein Open Last Admin: 02/23/17 18:16 Dose: 2.5 ml Discontinued Medications Famotidine (Pepcid) 20 mg IVPUSH ONETIME ONE Stop: 02/23/17 18:38 Last Admin: 02/23/17 18:44 Dose: 20 mg Sodium Chloride (Normal Saline) 1,000 mls @ 999 mls/hr IV STAT ONE Stop: 02/23/17 19:12 Last Admin: 02/23/17 18:21 Dose: 999 mls/hr Multivitamins/Minerals 10 ml/Thiamine HCl 100 mg/ Folic Acid 1 mg/ Sodium Chloride 1,011.2 mls @ 200 mls/hr IV ONETIME ONE Stop: 02/24/17 15:57 Last Admin: 02/24/17 11:21 Dose: 200 mls/hr Magnesium Sulfate 4 gm/ Premix 100 mls @ 50 mls/hr IV ONETIME ONE Stop: 02/25/17 02:49 Last Admin: 02/25/17 01:19 Dose: 50 mls/hr Morphine Sulfate (Morphine) 2 mg IVPUSH Q2H PRN PRN Reason: Pain (severe 7-10) Stop: 02/24/17 21:36 Ondansetron HCl (Zofran Odt) 4 mg PO Q4H PRN PRN Reason: nausea, able to take PO Last Admin: 02/24/17 07:34 Dose: 4 mg Ondansetron HCl (Zofran) 4 mg IVPUSH Q4H PRN PRN Reason: Nausea/Vomiting - Exam General: Reports: Alert, Oriented, No Acute Distress HEENT: Reports: Pupils Equal, Pupils Reactive Neck: Reports: Supple Lungs: Reports: Clear to Auscultation, Normal Respiratory Effort Cardiovascular: Reports: Regular Rate, Regular Rhythm GI/Abdominal Exam: Normal Bowel Sounds, Soft, Non-Tender Extremities: Normal Inspection, Normal Capillary Refill Skin: Reports: Intact Neurological: Reports: No New Focal Deficit *Q Meaningful Use (DIS) - VTE *Q VTE Criteria *Q: - Stroke *Q Stroke Criteria *Q: - AMI *Q AMI Criteria *Q:
== END 2017-02-25 13:00 | disposition hospice, home (50) | DRG 841 ==
LOC: MW.ED 17:55 → MW.MS 19:52
PROVIDERS: ADMIT Family Medicine; ATTEND Family Medicine
DX: R00.0 Tachycardia, unspecified (principal); I95.89 Other hypotension; C16.9 Malignant neoplasm of stomach, unspecified; C85.99 Non-Hodgkin lymphoma, unspecified, extranodal and solid organ sites; E87.1 Hypo-osmolality and hyponatremia; R53.1 Weakness; E86.0 Dehydration; E63.9 Nutritional deficiency, unspecified; R11.2 Nausea with vomiting, unspecified; Z79.899 Other long term (current) drug therapy; Z51.5 Encounter for palliative care
CPT/HCPCS: 36415; 80053; 85025; 93005; 96361; 96374; 99285; J7040; 83735; 84100; 99284; A9270-GY; J1644; J2405; J2550; J3411; J3475